=== PATIENT | female | born 1960 | race Caucasian/White ===

== ENCOUNTER 2020-01-29 14:16 | Emergency (ER) | payer OTHER ==
[~2020-01-29] VITALS: Ht 152.4 cm; Wt 59.0 kg
[2020-01-29 15:31] LABS: URINE BILIRUBIN NEGATIVE (Negative); URINE BLOOD TRACE (Negative); URINE COLOR YELLOW; URINE GLUCOSE-RANDOM NEGATIVE (Negative); URINE KETONES NEGATIVE (Negative); URINE NITRITE-REFLEX NEGATIVE (Negative); URINE PROTEIN NEGATIVE (Negative); URINE SPECIFIC GRAVITY <= 1.005 (1.005-1.030); URINE UROBILINOGEN 0.2 E.U./dl (0.2-1.0)
[2020-01-29 15:41] LABS: URINE CLARITY HAZY; URINE LEUKOCYTES-REFLEX 2+ (Negative)
[2020-01-29 15:50] LABS: ABSOLUTE BASOPHILS 0.1 thou/uL (0.0-0.2); ABSOLUTE EOSINOPHILS 0.1 thou/uL (0.0-0.7); ABSOLUTE LYMPHOCYTES 2.3 thou/uL (0.8-5.3); ABSOLUTE MONOCYTES 0.5 thou/uL (0.0-1.2); ABSOLUTE NEUTROPHILS 4.7 thou/uL (1.6-8.1); BASOPHILS 0.9 %; EOSINOPHILS 1.8 %; HEMATOCRIT 38.7 % (37.0-47.0); HEMOGLOBIN 13.3 gm/dL (12.0-15.0); LYMPHOCYTES 30.1 %; MCHC 34.5 g/dL (28.0-37.0); MONOCYTES 6.4 %; MPV 7.5 fl. (7.2-11.1); NUCLEATED RBCS 0 /100WBC; PLATELET COUNT* 350 thou/uL (150-400); POLYS 60.8 %; RBC 4.16 mil/uL (4.20-5.00); RDW-CV 12.7 % (10.5-14.5); WBC 7.6 thou/uL (4.0-11.0)
[2020-01-29 15:56] LABS: BACTERIA-REFLEX 1-9 Few /HPF (None Seen); CASTS None Seen /LPF (None Seen); CRYSTALS None Seen /LPF (None Seen); SQUAMOUS 0-3 Few /LPF (0-3); URINE RBC 0-2 Rare /HPF (0-2); URINE WBC-REFLEX 0-5 Rare /HPF (0-5)
[2020-01-29 16:55] LABS: CALCIUM 8.4 mg/dL (8.5-10.1); CREATININE 0.8 mg/dL (0.6-1.3); POTASSIUM 3.6 mmol/L (3.5-5.1)
[2020-01-29 16:59] LABS: ALBUMIN 3.9 g/dL (3.4-5.0); TOTAL BILIRUBIN 0.2 mg/dL (<0.1-1.0); TOTAL PROTEIN 7.7 g/dL (6.4-8.2)
[2020-01-29] MEDS ORDERED: AUGMENTIN 875-1 EACH PO (18:43)
[2020-01-29] MEDS ORDERED: ONDANSETRON HCL4 M2 PO (18:43)
[2020-01-29] MEDS ORDERED: NORCO 5-325 TA1 EAC1 PO (18:43)
[2020-01-29 19:22] VITALS: BP 148/85
== END 2020-01-29 19:25 | disposition home or self-care (01) ==
LOC: M.ERS 14:16
PROVIDERS: Nurse Practitioner Family
DX: K52.9 Noninfective gastroenteritis and colitis, unspecified (principal); N39.0 Urinary tract infection, site not specified; Z90.710 Acquired absence of both cervix and uterus